=== PATIENT | male | born 1995 | race Asian ===

== ENCOUNTER 2016-05-30 14:56 | Observation (INO) | payer OTHER ==
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
[2016-05-30 15:15] LABS: % IMMATURE GRANULYOCYTES 0.2 % (0.0-1.1); ABSOLUTE IMMATURE GRANULOCYTES 0.02 10^3/uL (0.00-0.10); ADD DIFF? NO; ADD MORPH? NO; ADD SCAN? NO; ATYPICAL LYMPHOCYTE FLAG 30 (0-99); FRAGMENT RBC FLAG 0 (0-99); HEMATOCRIT 49.1 % (40.0-51.0); HEMOGLOBIN 16.2 g/dL (13.7-17.5); LEFT SHIFT FLG 0 (0-99); LIPEMIA HEMOLYSIS FLAG 80 (0-99); MEAN CELL HEMOGLOBIN 27.6 pg (27.9-34.1); MEAN CELL VOLUME 83.8 fL (81.5-99.8); MEAN PLATELET VOLUME 10.1 fL (8.7-11.7); PLATELET CLUMPS FLAG 20 (0-99); PLATELET COUNT 264 10^3/uL (150-400); RED BLOOD CELL COUNT 5.86 10^6/uL (4.40-6.38); RED CELL DISTRIBUTION WIDTH 13.2 % (11.5-15.2)
[2016-05-30 15:24] LABS: ANION GAP 14 mEq/L (8-16); CALCIUM 9.8 mg/dL (8.5-10.4); CARBON DIOXIDE 22 mEq/l (22-31); CHLORIDE 105 mEq/L (97-110); CREATININE 1.1 mg/dL (0.7-1.3); ETHANOL SERUM < 10 mg/dL (0-10); GLOMERULAR FILTRATION RATE > 60; GLUCOSE 117 mg/dL (70-100); POTASSIUM 4.6 mEq/L (3.5-5.2); SODIUM 141 mEq/L (134-144)
[2016-05-30] MEDS ORDERED: NALOXONE HCL 0.4 MG/ML INJ IVP PRN (16:38)
[2016-05-30] MEDS ORDERED: LR 1,000 ML IV SCH (17:00)
[2016-05-30] MEDS ORDERED: HYDROmorphONE/DILAUDID 1 MG/ML SYR IVP ONE (17:22)
[2016-05-30] MEDS ORDERED: ONDANSETRON 4 MG/2 ML VIAL IVP ONE (17:23)
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
--- NOTE | 2016-05-30 19:21 | SOAPPROG ---
SOAP Progress Note Assessment/Plan: Assessment/Plan: MRI and CT neck normal. Head CT normal. Discussed with neurosurgical surgical - cancel repeat head CT. Q2-4hr neuro checks Soft collar Advance diet Concussion protocol 05/30/16 19:18 Objective: Vital Signs Temp Pulse Resp BP Pulse Ox 36.4 C 78 14 120/78 94 05/30/16 18:13 05/30/16 18:13 05/30/16 18:13 05/30/16 18:13 05/30/16 18:13 05/29/16 05/30/16 05/31/16 05:59 05:59 05:59 Intake Total 1000 Balance 1000 ICD10 Worksheet Patient Problems: Problems Problem Status Onset Concussion Acute Scalp laceration Acute
[2016-05-30] MEDS: ACETAMINOPHEN 325 MG TAB PO PRN (19:34)
[2016-05-30] MEDS: ONDANSETRON 4 MG/2 ML VIAL IVP PRN (20:12)
[2016-05-30] MEDS ORDERED: KETOROLAC 30 MG/1 ML SDV IVP ONE (20:42)
[2016-05-31] MEDS: KETOROLAC 15 MG/1 ML SDV IVP SCH ×3 (00:19→14:39)
[2016-05-31] MEDS: ACETAMINOPHEN 325 MG TAB PO PRN ×2 (06:19→11:19)
[2016-05-31] MEDS: ONDANSETRON 4 MG/2 ML VIAL IVP PRN (06:30)
[2016-05-31 08:37] VITALS: O2SAT 96
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
[2016-05-31] MEDS ORDERED: ENOXAPARIN 40 MG/0.4 ML SYR SC SCH (09:00)
[2016-05-31 11:45] VITALS: BP 106/49; PULSE 57; RESP 14; TEMP 98.4
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
--- NOTE | 2016-05-31 21:40 | SOAPPROG ---
SOAP Progress Note Assessment/Plan: Assessment/Plan: MRI and CT neck normal. Head CT normal. Discussed with neurosurgical surgical - cancel repeat head CT. Q2-4hr neuro checks Soft collar Advance diet Concussion protocol 05/30/16 19:18 Neck cleared clinically by me at the time of this note Objective: Vital Signs Temp Pulse Resp BP Pulse Ox 36.9 C 57 L 14 106/49 L 96 05/31/16 11:42 05/31/16 11:42 05/31/16 11:42 05/31/16 11:42 05/31/16 11:42 05/30/16 05/31/16 06/01/16 05:59 05:59 05:59 Intake Total 2460 Output Total 1550 Balance 910 ICD10 Worksheet Patient Problems: Problems Problem Status Onset Concussion Acute Scalp laceration Acute
== END 2016-05-31 17:20 | disposition home or self-care (01) ==
LOC: EDBD 14:56 → F2N 17:49
PROVIDERS: ADMIT Surgery; ATTEND Surgery
PROC: 0HQ0XZZ Repair Scalp Skin, External Approach (ICD-10-PCS; principal; 2016-05-30)
DX: S06.0X1A Concussion with loss of consciousness of 30 minutes or less, initial encounter (principal); S62.656A Nondisplaced fracture of middle phalanx of right little finger, initial encounter for closed fracture; V00.131A Fall from skateboard, initial encounter; Y92.414 Local residential or business street as the place of occurrence of the external cause; Y93.51 Activity, roller skating (inline) and skateboarding; Y99.8 Other external cause status; R40.2421 Glasgow coma scale score 9-12, in the field [EMT or ambulance]
CPT/HCPCS: 12001; 70450; 71260; 72125; 72141; 73140; 74177; 92523; 97161; 97165; G0378; 80305; 82947-QW; G0480; J1170; J1885; J2405

== ENCOUNTER → 2016-06-06 | Outpatient (CLI) | payer OTHER | LOC: FIMAGING 13:47 | PROVIDERS: ATTEND Physician Assistant Surgical | DX: M54.5 Low back pain (principal); M79.605 Pain in left leg; S09.90XD Unspecified injury of head, subsequent encounter ==

== ENCOUNTER 2016-06-16 17:51 | Observation (INO) | payer OTHER ==
[2016-06-16] MEDS ORDERED: NS 1,000 ML IV ONE (17:54)
[2016-06-16] MEDS ORDERED: ONDANSETRON 4 MG/2 ML VIAL IVP ONE (17:54)
--- NOTE | 2016-06-16 17:55 | EDPHY ---
H & P HPI/ROS: CHIEF COMPLAINT: Altered mental status HISTORY OF PRESENT ILLNESS: Patient is a 21-year-old man who is brought by EMS from warned work for confusion. Was admitted here 2 weeks ago after head injury. He was riding a skateboard and fell off. He was confused and post concussive. He had a CT of his head, cervical spine, chest abdomen and pelvis that were negative. He also had an MRI of his cervical spine was negative. He was seen by Neurosurgery and cleared by them. He is discharged to follow up with Neurology. Today the patient was at school and somehow intercepted by the Gabriel of the school who took him to the [facility] stating that he was acting strange. At the [facility] he exhibited poor memory and comprehension of the instructions. They wanted to send to the emergency department but he refused. They placed him on a hold and called ambulance. Ambulance suspicious of intoxication because he was [place] in his behavior and occasionally burst out laughing inappropriately. He is moving all extremities. He denies being in any pain. REVIEW OF SYSTEMS: Constitutional: denies: chills, fever, recent illness, recent injury EENTM: denies: blurred vision, double vision, nose congestion Respiratory: denies: cough, shortness of breath Cardiac: denies: chest pain, irregular heart rate, lightheadedness, palpitations Gastrointestinal/Abdominal: denies: abdominal pain, diarrhea, nausea, vomiting, blood streaked stools Genitourinary: denies: dysuria, frequency, hematuria, pain Musculoskeletal: denies: joint pain, muscle pain Skin: denies: lesions, rash, jaundice, bruising Neurological: See HPI Hematologic/Lymphatic: denies: blood clots, easy bleeding, easy bruising Immunologic/allergic: denies: HIV/AIDS, transplant EXAM: GENERAL: Well-appearing, well-nourished and in no acute distress. HEAD: Atraumatic, normocephalic. EYES: Pupils equal round and reactive to light, extraocular movements intact, sclera anicteric, conjunctiva are normal. ENT: TMs normal, nares patent, oropharynx clear without exudates. Moist mucous membranes. NECK: Normal range of motion, supple without lymphadenopathy or JVD. LUNGS: Breath sounds clear to auscultation bilaterally and equal. No wheezes rales or rhonchi. HEART: Regular rate and rhythm without murmurs, rubs or gallops. ABDOMEN: Soft, nontender, normoactive bowel sounds. No guarding, no rebound. No masses appreciated. BACK: No CVA tenderness, no spinal tenderness, step-offs or deformities EXTREMITIES: Normal range of motion, no pitting or edema. No clubbing or cyanosis. NEUROLOGICAL: Cranial nerves II through XII grossly intact. Normal speech, normal gait. 5/5 strength, normal movement in all extremities, normal sensation PSYCH: See HPI SKIN: Warm, dry, normal turgor, no visible rashes or lesions. Source: Patient Exam Limitations: No limitations - Medical/Surgical History Hx Asthma: No Hx Chronic Respiratory Disease: No Hx Diabetes: No Hx Cardiac Disease: No Hx Renal Disease: No Hx Cirrhosis: No Hx Alcoholism: No Hx HIV/AIDS: No Hx Splenectomy or Spleen Trauma: No Other PMH: PMH: unknown , patient denies med hx - Family History Significant Family History: No pertinent family hx - Social History Smoking Status: Current every day smoker Alcohol Use: Sober Drug Use: None Constitutional: Initial Vital Signs Temperature (C) 36.8 C 06/16/16 18:27 Heart Rate 76 06/16/16 18:27 Respiratory Rate 18 06/16/16 18:27 Blood Pressure 126/71 H 06/16/16 18:27 O2 Sat (%) 98 06/16/16 18:27 O2 Delivery Mode Room Air Allergies/Adverse Reactions: No Known Allergies Allergy (Verified 05/30/16 18:24) Home Medications: Medication Instructions Recorded Acetaminophen [Tylenol 325mg (*)] 325 mg PO DAILY PRN 06/16/16 Medical Decision Making - Diagnostics Imaging Results: Imaging Impressions Head CT 06/16/16 17:54 Impression: Normal CT of the head. Findings and recommendations discussed with THANH STRINGER at 1830 hour, 2016. Final report concurs with initial preliminary interpretation. Imaging: Discussed imaging studies w/ call worker person Radiologist ED Course/Re-evaluation: 7:30 p.m. the patient does not need to be on an M1 hold. I presented this and placed him on a detainer. We are awaiting urinalysis. Suspect concussion versus substance abuse. 8:15 p.m. the patient continues to have a headache and confusion. He thought that it was May and Monday. He states that his headache and nausea and confusion seems to fluctuate. states that he initially felt better after he was released from the hospital. He does admit to marijuana yesterday. He denies any drugs or alcohol today. He will not allow us to call his roommates. He will not give us the phone numbers. He states that he does not want to be associated with them. I have taken him off of his hold placed him on a Medical detainer. I will admit to the step-down unit. Discussed the case with Dr. Zain Meek who will admit to the step-down unit. Differential Diagnosis: Partial list of the Differential diagnosis considered include but were not limited to; concussion, repeat concussion, substance abuse and although unlikely based on the history and physical exam, I also considered infection, seizure, meningitis . - Data Points Laboratory Results: Laboratory Results 06/16/16 17:54 06/16/16 17:54 06/16/16 06/16/16 06/16/16 19:34 17:54 17:54 WBC 8.77 10^3/uL 10^3/uL (3.80-9.50) RBC 5.92 10^6/uL 10^6/uL (4.40-6.38) Hgb 16.5 g/dL g/dL (13.7-17.5) Hct 50.4 % % (40.0-51.0) MCV 85.1 fL fL (81.5-99.8) MCH 27.9 pg pg (27.9-34.1) MCHC 32.7 g/dL g/dL (32.4-36.7) RDW 13.5 % % (11.5-15.2) Plt Count 271 10^3/uL 10^3/uL (150-400) MPV 10.0 fL fL (8.7-11.7) Neut % (Auto) 55.4 % % (39.3-74.2) Lymph % (Auto) 34.1 % % (15.0-45.0) [place] % (Auto) 6.3 % % (4.5-13.0) Eos % (Auto) 2.9 % % (0.6-7.6) Baso % (Auto) 0.8 % % (0.3-1.7) Nucleat RBC Rel Count 0.0 % % (0.0-0.2) Absolute Neuts (auto) 4.87 10^3/uL 10^3/uL (1.70-6.50) Absolute Lymphs (auto) 2.99 10^3/uL 10^3/uL (1.00-3.00) Absolute Monos (auto) 0.55 10^3/uL 10^3/uL (0.30-0.80) Absolute Eos (auto) 0.25 10^3/uL 10^3/uL (0.03-0.40) Absolute Basos (auto) 0.07 10^3/uL 10^3/uL (0.02-0.10) Absolute Nucleated RBC 0.00 10^3/uL 10^3/uL (0-0.01) Immature Gran % 0.5 % % (0.0-1.1) Immature Gran # 0.04 10^3/uL 10^3/uL (0.00-0.10) Sodium 144 mEq/L mEq/L (134-144) Potassium 4.1 mEq/L mEq/L (3.5-5.2) Chloride 103 mEq/L mEq/L (97-110) Carbon Dioxide 27 mEq/l mEq/l (22-31) Anion Gap 14 mEq/L mEq/L (8-16) BUN 20 mg/dL mg/dL (7-23) Creatinine 1.1 mg/dL mg/dL (0.7-1.3) Estimated GFR > 60 Glucose 94 mg/dL mg/dL (70-100) Calcium 10.3 mg/dL mg/dL (8.5-10.4) Urine Opiates Screen NEGATIVE (NEGATIVE) Urine Barbiturates NEGATIVE (NEGATIVE) Ur Phencyclidine Scrn NEGATIVE (NEGATIVE) Ur Amphetamine Screen NEGATIVE (NEGATIVE) U Benzodiazepines Scrn NEGATIVE (NEGATIVE) Urine Cocaine Screen NEGATIVE (NEGATIVE) U Marijuana (THC) Screen NON-NEGATIVE H (NEGATIVE) Ethyl Alcohol < 10 mg/dL mg/dL (0-10) Medications Given: Discontinued Medications Sodium Chloride (Ns) 1,000 mls @ 0 mls/hr IV ONCE ONE PRN Reason: Wide Open Stop: 06/16/16 17:55 Last Admin: 06/16/16 18:58 Dose: Not Given Ondansetron HCl (Zofran) 4 mg IVP EDNOW ONE Stop: 06/16/16 17:55 Last Admin: 06/16/16 18:58 Dose: Not Given Departure - Departure Disposition: [facility] Clinical Impression: Concussion Qualifiers: Encounter type: subsequent encounter Loss of consciousness presence/duration: with LOC of unspecified duration Qualified Code(s): S06.0X9D - Concussion with loss of consciousness of unspecified duration, subsequent encounter Altered mental status Qualifiers: Altered mental status type: disorientation Qualified Code(s): R41.0 - Disorientation, unspecified Condition: Good
[2016-06-16 18:01] LABS: % IMMATURE GRANULYOCYTES 0.5 % (0.0-1.1); ABSOLUTE IMMATURE GRANULOCYTES 0.04 10^3/uL (0.00-0.10); ADD DIFF? NO; ADD MORPH? NO; ADD SCAN? NO; ATYPICAL LYMPHOCYTE FLAG 20 (0-99); FRAGMENT RBC FLAG 0 (0-99); HEMATOCRIT 50.4 % (40.0-51.0); HEMOGLOBIN 16.5 g/dL (13.7-17.5); LEFT SHIFT FLG 0 (0-99); LIPEMIA HEMOLYSIS FLAG 80 (0-99); MEAN CELL HEMOGLOBIN 27.9 pg (27.9-34.1); MEAN CELL HEMOGLOBIN CONCENTR. 32.7 g/dL (32.4-36.7); MEAN CELL VOLUME 85.1 fL (81.5-99.8); PLATELET CLUMPS FLAG 0 (0-99); PLATELET COUNT 271 10^3/uL (150-400); RED BLOOD CELL COUNT 5.92 10^6/uL (4.40-6.38); RED CELL DISTRIBUTION WIDTH 13.5 % (11.5-15.2)
[2016-06-16 18:40] LABS: ANION GAP 14 mEq/L (8-16); CALCIUM 10.3 mg/dL (8.5-10.4); CARBON DIOXIDE 27 mEq/l (22-31); CHLORIDE 103 mEq/L (97-110); CREATININE 1.1 mg/dL (0.7-1.3); ETHANOL SERUM < 10 mg/dL (0-10); GLOMERULAR FILTRATION RATE > 60; GLUCOSE 94 mg/dL (70-100); POTASSIUM 4.1 mEq/L (3.5-5.2); SODIUM 144 mEq/L (134-144)
[2016-06-16] MEDS ORDERED: oxyCODONE IR 5 MG TAB PO PRN (20:52)
[2016-06-16] MEDS ORDERED: ONDANSETRON 4 MG/2 ML VIAL IVP PRN (20:52)
[2016-06-16] MEDS ORDERED: ACETAMINOPHEN 325 MG TAB PO PRN (20:52)
[2016-06-16] MEDS ORDERED: ONDANSETRON DISINTEGRATING 4 MG TAB PO PRN (20:52)
[2016-06-16] MEDS ORDERED: LORazepam 2 MG/ML INJ IVP PRN (20:52)
[2016-06-16] MEDS ORDERED: NS 1,000 ML IV SCH (21:00)
--- NOTE | 2016-06-16 21:32 | GHP ---
[f rep st] HISTORY AND PHYSICAL DATE OF ADMISSION: 06/16/2016 CHIEF COMPLAINT: Confusion. HISTORY OF PRESENT ILLNESS: This is a 21-year-old man who was admitted here and discharged on May 31 by the Trauma Service. At that time, he was admitted after falling off a skateboard and hitting his head. He was believed to have had a concussion as all imaging was negative. It sounded as tho ugh he had been doing a little bit better for a few days. He tells me he had recently gone back to [employer] He was brought in today by ambulance. Apparently he was at school and somehow his Gabriel saw him and took him to [facility]. They were concerned that his memory was poor and he seemed quite con fused. They sent him by ambulance to the emergency department. They ambulance noted that he had amna ppropriate burst of laughing. He has some ongoing neck pain. He is unable to really give me a very cohesive history for events that happened today. He does say that he uses marijuana. He was placed on an M1 hold in the ambulance. This was changed to a medical detainer which seems mo re appropriate given his condition. PAST MEDICAL/SURGICAL HISTORY: Concussion as above. MEDICATIONS: None. ALLERGIES: None. FAMILY HISTORY: He denies any. SOCIAL HISTORY: He drinks and smokes occasionally. He uses marijuana but no other drugs. REVIEW OF SYSTEMS: 10-point review of systems is conducted and is negative except per HPI. PHYSICAL EXAMINATION: VITAL SIGNS: Blood pressure 126/71, heart rate 76, respiration rate 18, satu rating 98% on room air. Temperature is 36.8. GENERAL: The patient is a pleasant man who is lying in a dark room, is slow to answer questions but does not appear to be in any distress. HEENT: Shows his mucous membranes to be moist. There is no scleral icterus. CARDIOVASCULAR: Regular rate and rhythm. No murmurs, rubs, or gallops. PULMONARY: Lungs clear to auscultation bilaterally. ABDOME N: Soft, nontender, nondistended. SKIN: No rash. : No Kim. NEUROLOGIC: Shows him to be alert and oriented times 1-2. His cranial nerves 2-12 are intact. He is moving all extremities. Does no t appear to have a focal exam. PSYCHIATRIC: Difficult to interpret. LABORATORY DATA: CBC is normal. Basic metabolic panel is normal. Tox screen is negative for nicole cole. DATA: 1. I discussed this with Dr. Gillis in the emergency department. 2. I reviewed his chart. 3. I reviewed his head CT, as well as imaging from his last admission. IMPRESSION AND PLAN: A 21-year-old man with recent concussion presents with significant altered men kia status. 1. Acute encephalopathy: Unclear if this is ongoing postconcussive syndrome in the setting of harley gray use or something more insidious. I do not suspect meningitis as he is afebrile. Head CT has been negative. I think it is reasonable to watch him, get Case Management involved tomorrow and get some more collateral. We will see if he has any clearing of his mental status overnight. We will hold any sedating medications at this time. 2. Medical detainer: I think this is appropriate. He has poor insight into his current condition and I do not think he has capacity at this point. Be a danger to himself given his mental status. Can revisit this tomorrow. 3. We will do a basic infectious workup including urinalysis and chest x-ray. If he has a fever, w ould get blood cultures and consider lumbar puncture at that point. 4. I have put in a Neurology consult request given his odd behavior. /[id number]/MODL
[2016-06-17 01:15] LABS: COLOR YELLOW; LEUKOCYTE ESTERASE,URINE NEGATIVE (NEGATIVE); NITRITE,URINE NEGATIVE (NEGATIVE)
[2016-06-17 05:46] LABS: % IMMATURE GRANULYOCYTES 0.3 % (0.0-1.1); ABSOLUTE IMMATURE GRANULOCYTES 0.02 10^3/uL (0.00-0.10); ADD DIFF? NO; ADD MORPH? NO; ADD SCAN? NO; ATYPICAL LYMPHOCYTE FLAG 0 (0-99); FRAGMENT RBC FLAG 0 (0-99); HEMATOCRIT 44.5 % (40.0-51.0); HEMOGLOBIN 14.7 g/dL (13.7-17.5); LEFT SHIFT FLG 0 (0-99); LIPEMIA HEMOLYSIS FLAG 80 (0-99); MEAN CELL HEMOGLOBIN 27.9 pg (27.9-34.1); MEAN CELL VOLUME 84.6 fL (81.5-99.8); MEAN PLATELET VOLUME 9.8 fL (8.7-11.7); PLATELET CLUMPS FLAG 0 (0-99); PLATELET COUNT 227 10^3/uL (150-400); RED BLOOD CELL COUNT 5.26 10^6/uL (4.40-6.38); RED CELL DISTRIBUTION WIDTH 13.3 % (11.5-15.2)
[2016-06-17 06:02] LABS: ALANINE AMINOTRANSFERASE 23 IU/L (21-72); ALBUMIN 3.8 g/dL (3.5-5.0); ALKALINE PHOSPHATASE 53 IU/L (38-126); ANION GAP 9 mEq/L (8-16); ASPARTATE AMINOTRANSFERASE 22 IU/L (17-59); BILIRUBIN,TOTAL 0.6 mg/dL (0.1-1.4); CALCIUM 9.6 mg/dL (8.5-10.4); CARBON DIOXIDE 24 mEq/l (22-31); CHLORIDE 106 mEq/L (97-110); CREATININE 0.8 mg/dL (0.7-1.3); GLOMERULAR FILTRATION RATE > 60; GLUCOSE 102 mg/dL (70-100); POTASSIUM 4.2 mEq/L (3.5-5.2); SODIUM 139 mEq/L (134-144)
[2016-06-17 08:25] VITALS: RESP 18
--- NOTE | 2016-06-17 09:28 | PDCONSULT ---
Taping Supervisor Note: HOSPITAL NEUROLOGY CONSULT REQUESTING: Zain Meek MD REASON: confusion HPI: This is a 21-year-old right-handed gentleman with a history a recent fall off a skateboard with concussion who presents for evaluation confusion and inappropriate emotional outbursts. Patient was admitted May 31 as a trauma alert after falling off a skateboard. Patient apparently did strike his head. It is unknown if he lost consciousness. He was evaluated by Neurosurgery and cleared from a trauma standpoint. Patient was noted to be confused and amnestic of the events during that hospitalization. He was discharged back home. He was brought back to our facility after he was found to be on campus confused with inappropriate crying and laughing. Apparently, the Gabriel of one of the schools in [facility] separate him while he was walking around campus and brought him to the [facility]. He was then transported to our facility by EMS. Patient was found to be confused and initially refusing medical treatment but was placed on a medical hold. He was indeed found to be having inappropriate felt of laughter and tearfulness. On my interview this morning, the patient is quite somnolent. He denies any headache. He is not endorsing any dizziness or visual disturbance. He states he does not know why he is here and is amnestic of his prior hospitalization. He had apparently endorsed consuming cannabis on the day of presentation. He had a CT of the head without contrast which was unrevealing. General metabolic, toxic and infectious screening labs have been unrevealing as well. ROS: As per the HPI, otherwise a complete 12 point ROS was performed and is negative ALLERGIES AND MEDS: As recorded in the EMR - reviewed and reconciled PFSH: As per the intake H&P by Dr. Meek from yesterday EXAM: VS reviewed in EMR GEN: WDWN laying in NAD HEENT: NCAT, sclera anicteric, conjunctiva not injected, MMM, oropharynx clear, no scalp tenderness NECK: supple, nontender, no meningismus CV: RRR s1 s2 wo m/r/c/g. Carotid pulses 2+ wo bruit NEURO: MS: a bit somnolent, reduced attention, oriented to self, place (not specific hospital), date, but not situation. He is amnestic of how he presented here. Speech nondysarthric, but lacks prosody. No language disturbance. Follows commands. Attends to both sides. Recent memory is impaired. Mood depressed with flat affect. Adequate fund of knowledge. Poor insight. CN: pupils 4mm round and reactive. Fundi with sharp discs. VFF. Primary gaze centered. Full ocular motility. Facial sensation preserved. Face symmetric. Hearing grossly intact to finger rub. Palatoglossal movements intact. Shoulder shrug and head turn strong. MOTOR: normal bulk/tone. No adventitial movements. Full power throughout. SENSORY: intact to all modalities throughout. No extinction. COORD: no ataxia FN/HS. Javi preserved. REFLEX: plantars down. No clonus. DTRS 2/4. GAIT: deferred to PT safety eval DATA REVIEW: Labs reviewed in EMR PERSONALLY INTERPRETED RESULTS AND DATA: CT head wo - slight hypodensity in the left temporal lobe likely artifactual, but otherwise unremarkable. 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 This has been since his fall from a skateboard with head trauma. I suspect that this is all related to his concussion. His symptoms do localized to the prefrontal and inferior temporal regions, which are susceptible to shear/inertial injury. He is afebrile and without any other indication of infectious illness. Suspect his post concussive syndrome has been potentiated by cannabis consumption. We will obtain an MRI brain without contrast to evaluate for any axonal injury to the prefrontal/temporal regions. Normal MRI would not exclude more microscopic axonal injury. But this will also help us rule out a more sinister structural issue. His main issues are with cognitive and behavioral domains. He does not seem to be exhibiting any other postconcussive phenomenon such as headaches, vestibular disturbance, visual disturbance. If his MRI is unremarkable, he will need multi-disciplinary post-concussive/TBI rehab. We can consider starting an SSRI to help stabilize his mood. He will need close follow up with neuropsychology for cognitive and behavioral evaluation and an intensive cognitive rehab plan. He will also need to followup with psychiatry for further management of mood stabilization. If at any point he endorses headaches, he can follow-up with us in Neurology Clinic as an outpatient. If he were to endorse any visual disturbance, he can follow up with Optometry for visual rehabilitation. If he were to endorse any vestibular or gait issues, he can follow-up with physical therapy. If he were to endorse any sleep disturbance, he can followup with sleep medicine.
[2016-06-17 16:21] VITALS: BP 99/49; PULSE 66; TEMP 97.3; O2SAT 95
--- NOTE | 2016-06-17 18:49 | PDDCSUM ---
Discharge Summary Discharge Summary: DISCHARGE DIAGNOSES: -Acute confusional state -Ongoing symptoms of recent concussion -Suspicion for possible PTSD CONSULTANTS: Dr. Law of neurology PROCEDURES: MRI of the brain without abnormal findings HOSPITAL COURSE SUMMARY: -This patient with a recent closed head injury came into the hospital from the [facility] where he was having acute emotional episode and confusional state. This all resolved spontaneously. Patient is approximately 2 weeks out from a closed head injury with no evidence of bleeding. He had fallen from a skateboard. He describes to me at this time that he is having episodes where things do not feel right and he gets confused and has emotional outbursts. These might occur in a situation where there is too much stimulus or where he is stressed, or it might occur with if he walks past the place where he had a skateboard fall. they last variable periods of time. He says that he will be able to resolve the symptoms fairly well if he goes to sleep. He does state that when he often does is goes back to his apartment in lies down smokes some pot falls asleep. He does not feel that the marijuana is aggravating his symptoms. He was seen here by our speech language pathologist. His examination with her demonstrated clear findings of concussion syndrome. I discussed with the patient my concern that he probably has both concussion and PTSD. I described that both these are syndromes with multiple predictable triggers in that he should work with therapist to help identify and manage the triggers as well as his response to these triggers. There are also other therapies in potentially medications that may be of some help him. Also described that the marijuana certainly could be counterproductive and interfere with recovery. I described that recovery can be sometimes very incomplete or non-existent with the syndromes and that he should do all he can to seek assistance in recovery. I offered to help him work with the [facility] to get a than assistance there. At this time the patient is stating that he thinks he will be fine and he wishes to try an recover on his own and does not wish to engage with any physicians or therapists for any help with this issue. We did discuss things enough detail that it is very clear to me that he understands what I am describing to him and why making my recommendations. I did ask him if there were any cultural other factors are making him less likely to 1 engage in therapies and he said there were not. I did offer him a letter recommending that the [facility] offer him a quiet room to take his exam is in and he did accept that letter. PENDING TEST RESULTS: none MEDICATION CHANGES: none FOLLOW-UP PLAN: it is recommended he follow up with Dr. Jazzy Villagran, follow up with the [facility], and seek out care from therapists highly skilled with dealing with both PTSD and concussion. However the patient tells me at this time that he does not intend to engage in these follow-up of plans. I did encourage him that if he is having ongoing trouble in changes his mind to go ahead and contact both Dr. Villagran and the [facility] Greater than 35 minutes bedside and care coordination time today
== END 2016-06-17 21:18 | disposition home or self-care (01) ==
LOC: EDUNIT# → EEVIPCON 20:23 → F2N 22:00
PROVIDERS: ADMIT Student in an Organized Health Care Education/Training Program; ATTEND Student in an Organized Health Care Education/Training Program
DX: F44.89 Other dissociative and conversion disorders (principal); F07.81 Postconcussional syndrome; Z72.0 Tobacco use
CPT/HCPCS: 70450; 70551; 92523; 99285; G0378; 80305; G0480

== ENCOUNTER 2016-07-06 16:10 | Emergency (ER) | payer OTHER ==
[2016-07-06] MEDS ORDERED: LET GEL TOPICAL 1 EA SYR TP ONE (18:41)
--- NOTE | 2016-07-06 19:40 | EDPHY ---
H & P Smoking Status: Current every day smoker Time Seen by Provider: 07/06/16 18:14 HPI/ROS: CHIEF COMPLAINT: abrasions HISTORY OF PRESENT ILLNESS: 21-year-old male presents emergency department with abrasions to his right hand and elbow after falling off his skateboard today. Tetanus is up-to-date, he is [id number]. Patient denies head strike, no neck pain, no loss of consciousness, he remembers the entire accident. He denies numbness or tingling in his hand, no other complaints. ( Ann Chou) Physical Exam: Normal vital signs GEN: Awake, alert, oriented, no acute distress RESP: nl resp effort MSK: Right elbow with full range of motion against resistance, right wrist with full range of motion, right shoulder with full range of motion, 2+ radial pulses, sensation intact to light touch, mild tenderness to palpation to distal 5th metacarpal SKIN: Abrasion to right elbow, abrasion to palmar aspect of right hand and dorsal aspect of right hand (Ann Chou) Constitutional: Initial Vital Signs Temperature (C) 37.2 C 07/06/16 16:10 Heart Rate 70 07/06/16 16:10 Respiratory Rate 16 07/06/16 16:10 Blood Pressure 116/66 07/06/16 16:10 O2 Sat (%) 94 07/06/16 16:10 O2 Delivery Mode Room Air Allergies/Adverse Reactions: No Known Allergies Allergy (Verified 05/30/16 18:24) Home Medications: Medication Instructions Recorded Acetaminophen [Tylenol 325mg (*)] 325 mg PO DAILY PRN 06/16/16 MDM/Departure - [facility] Imaging: I viewed and interpreted images myself - [facility] Imaging Results: Imaging Impressions Hand X-Ray 07/06/16 18:49 Impression: Negative. No acute fracture. ED Course/Re-evaluation: This patient was evaluated and managed by the nurse practitioner. I have reviewed the chart and agree with the findings and plan of care as documented. ( Annia Amato) - Depart Disposition: Home, Routine, Self-Care Clinical Impression: Fall involving skateboard as cause of accidental injury Abrasion of right hand Qualifiers: Encounter type: initial encounter Qualified Code(s): S60.511A - Abrasion of right hand, initial encounter Abrasion of right elbow Qualifiers: Encounter type: initial encounter Qualified Code(s): S50.311A - Abrasion of right elbow, initial encounter Condition: Good Instructions: Acute Wounds (ED) Additional Instructions: Rest, elevate, take 600 mg of ibuprofen every 8 hours with food for 3-5 days for pain, return to the emergency department for any signs of infection, fevers , drainage, redness, increasing pain, any new symptoms or concerns. Referrals: Ruddy Pyle MD [[facility] Primary Care Provider] - Follow Up Only If Needed ( Primary care doctor on-call)
[2016-07-06 19:55] VITALS: BP 116/66; PULSE 70; RESP 16; TEMP 99; O2SAT 94
== END 2016-07-06 19:48 | disposition home or self-care (01) ==
DX: S60.511A Abrasion of right hand, initial encounter (principal); S50.311A Abrasion of right elbow, initial encounter; F17.200 Nicotine dependence, unspecified, uncomplicated; V00.131A Fall from skateboard, initial encounter; Y99.8 Other external cause status; Y93.51 Activity, roller skating (inline) and skateboarding